=== PATIENT | female | born 2000 | race Caucasian/White ===

== ENCOUNTER → 2022-10-22 | Outpatient (CLI) | payer OTHER ==
[2022-10-22 14:02] LABS: HEMATOCRIT 41 % (35-52); HEMOGLOBIN 13.9 g/dL (11.5-16.0); MEAN CORPUSCULAR HEMOGLOBIN 29 pg (25-34); MEAN CORPUSCULAR HGB CONC 34 g/dL (32-36); MEAN CORPUSCULAR VOLUME 84 fL (80-99); MEAN PLATELET VOLUME 10.8 fL (9.0-12.2); PLATELET COUNT 315 10^3/uL (130-400); WHITE BLOOD COUNT 9.6 10^3/uL (4.3-11.0)
[2022-10-22 14:19] LABS: ALBUMIN 4.4 GM/DL (3.2-4.5)
[2022-10-22 14:20] LABS: POTASSIUM 3.9 MMOL/L (3.6-5.0)
[2022-10-22 14:21] LABS: CALCIUM 9.4 MG/DL (8.5-10.1)
[2022-10-22 14:22] LABS: TOTAL PROTEIN 7.9 GM/DL (6.4-8.2)
[2022-10-22 14:24] LABS: BILIRUBIN,TOTAL 0.4 MG/DL (0.1-1.0)
[2022-10-22 14:25] LABS: CREATININE SERUM 0.77 MG/DL (0.60-1.30)
== END ==
LOC: LAB 13:44
PROVIDERS: ATTEND Registered Nurse Critical Care Medicine
DX: A93.8 Other specified arthropod-borne viral fevers (principal); L03.116 Cellulitis of left lower limb; L03.115 Cellulitis of right lower limb
CPT/HCPCS: 36415; 80053; 85027; 86003; 86618; 86666; 86668; 86757